=== PATIENT | female | born 1990 | race Caucasian/White ===

== ENCOUNTER 2017-09-26 03:13 | Inpatient (IN) | payer OTHER ==
[2017-09-26] MEDS ORDERED: DEXTROSE 5%-LACTATED RINGERS 1,000 ML IV SCH (04:25)
[2017-09-26 05:25] LABS: BASO % 0.1 % (0-2.0); EOS % 2.8 % (0-4.5); HEMOGLOBIN 11.1 GM/dL (10.7-15.3); MCH 27.8 pg (25.7-33.7); MCHC 33.7 g/dl (32.0-36.0); MEAN CELL VOLUME 82.5 fl (80-96); MEAN PLT VOLUME 8.5 fl (7.5-11.1); NEUT % 73.1 % (42.8-82.8); PLATELET COUNT 318 K/MM3 (134-434); RBC 4.01 M/mm3 (3.60-5.2); RDW 14.9 % (11.6-15.6); WHITE BLOOD COUNT 12.4 K/mm3 (4.0-10.0)
[2017-09-26 05:40] LABS: INR 0.87 (0.82-1.09); PROTHROMBIN TIME (PATIENT) 9.8 SEC (9.98-11.88)
[2017-09-26 05:43] LABS: ACTIVATED PTT 23.8 SECONDS (26.9-34.4)
[2017-09-26 05:53] LABS: ANION GAP 8 (8-16); BLOOD UREA NITROGEN 7 mg/dL (7-18); CALCIUM 8.6 mg/dL (8.5-10.1); CHLORIDE 108 mmol/L (98-107); CO2 22 mmol/L (21-32); CREATININE 0.5 mg/dL (0.55-1.02); GLUCOSE,RANDOM 128 mg/dL (74-106); POTASSIUM 3.8 mmol/L (3.5-5.1); SODIUM 138 mmol/L (136-145)
[2017-09-26 06:14] VITALS: BMI 28.3
[2017-09-26] MEDS ORDERED: FENTANYL/BUPIVACAINE/NS/PF - PCEA - 50 ML DISP.SYRIN EP ONE ×2 (07:13→12:49)
[2017-09-26] MEDS ORDERED: ELECTROLYTE-148 SOLN 1,000 ML IV SCH (07:30)
[2017-09-26] MEDS ORDERED: NALOXONE HCL 0.4 MG/ML VIAL IVPUSH PRN (08:03)
[2017-09-26] MEDS ORDERED: FENTANYL/BUPIVACAINE/NS/PF - PCEA - 50 ML DISP.SYRIN EP SCH (08:15)
[2017-09-26] MEDS ORDERED: OXYTOCIN 30 UNITS in 0.9% NS 30 UNIT/500 ML INFUS.BAG IVPB SCH (08:30)
--- NOTE | 2017-09-26 08:41 | HP ---
Past Medical History - Primary Care Physician PCP:: Arianna Ann - Admission Chief Complaint: 27 yrs , , 40.2 weeks , Iup , onse LP since 11.00PM History of Present Illness: PNC at [facility] in [place] . 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 No: Gastritis Hepatobiliary: No: Hepatitis B Renal/: No: UTI ...: 1 ...Para: 0 ...Term: 0 ...: 0 ...Spon : 0 ...Induced : 0 ...Multiple Gestation: 0 ...LMP: 12/18/16 ... Weeks Gestation by Dates: 40.2 ...EDC by Dates: 09/24/17 Heme/Onc: No: Anemia Infectious Disease: No: AIDS, HIV, STD's Psych: Yes: Other (denies h/o mental health problems) - Past Surgical History Past Surgical History: Yes: None Hx Myomectomy: No Hx Transabdominal Cerclage: No - Smoking History Smoking history: Never smoked Have you smoked in the past 12 months: No - Alcohol/Substance Use Hx Alcohol Use: No History of Substance Use: reports: None - Social History History of Recent Travel: No Home Medications - Allergies Allergies/Adverse Reactions: Allergies Allergy/AdvReac Type Severity Reaction Status Date / Time Penicillins Allergy Verified 09/26/17 05:00 - Home Medications Home Medications: Ambulatory Orders Vit/Iron Fum/Folic AC [ Tablet] 1 each PO DAILY 09/26/17 Physical Exam - Maternity Vital Signs: Vital Signs Temperature 98.0 F 09/26/17 06:00 Pulse Rate 80 09/26/17 06:00 Respiratory Rate 20 09/26/17 06:00 Blood Pressure 136/71 09/26/17 06:00 O2 Sat by Pulse Oximetry (%) Constitutional: Yes: Well Nourished, Other (pt has epidural in situ) Eyes: Yes: WNL HENT: Yes: WNL, Normocephalic Neck: Yes: WNL Cardiovascular: Yes: WNL Lungs: Clear to auscultation Breast(s): Yes: WNL - Abdominal Exam/OB Fundal Height: 40 Number of Fetuses: Single Presentation: Vertex Contractions: Yes Regularity: Irregular Intensity: Moderate (3-5 min) Monitor Mode: External Heart Rate (range): 140 Heart Rate Location: [facility] Category: I Accelerations: Uniform Decelerations: None - Vaginal Exam/OB Vaginal Bleediing: No Speculum Exam: No Dilatation (cm): 5 Effacement (%): 90 Amniotic Membrane Status: Intact Presentation: Vertex/Position (exam at 8.15 AM) Station: -2 (-2/-1) - Physical Exam Musculoskeletal: Yes: WNL Extremities: Yes: Deformity. No: Calf Tenderness Edema: LLE: 1+, RLE: 1+ Integumentary: Yes: Tattoos Deep Tendon Reflex Grade: Normal +2 ...Motor Strength: WNL Psychiatric: Yes: WNL, Alert - Labs Lab Results: CBC, BMP 09/26/17 05:00 09/26/17 05:00 Laboratory Tests 09/26/17 09/26/17 09/26/17 05:00 05:00 05:00 PT with INR 9.80 L INR 0.87 PTT (Actin FS) 23.8 L Blood Type O POSITIVE Antibody Screen Negative Laboratory Tests 09/26/17 09/26/17 09/26/17 08:35 09:19 09:19 Retic Count 1.77 H Uric Acid 3.4 GGT 13 AST 17 ALT 16 Urine Protein Negative Problem List - Problems (1) 40 weeks gestation of Code(s): Z3A.40 - 40 WEEKS GESTATION OF (2) Labor established Code(s): VBT8548 - (3) with care elsewhere Code(s): Z34.90 - ENCNTR FOR SUPRVSN OF NORMAL , UNSP, UNSP TRIMESTER Assessment/Plan 27 yrs , 40 .2 weeks, Gbs neg , admitted in labor , [facility] intrapartum some BP are noted elevated 157/85, 163/88, 152/89, probably due to pain . will do HELLP work up & U/A plan ct epidural labor analgesia started at 7.50 AM anticipate vaginal delivery
[2017-09-26] MEDS ORDERED: TUBERCULIN PPD 5 TU/0.1ML SYRINGE (IN PATIENT USE ONLY) ID ONE (09:00)
[2017-09-26 09:33] LABS: RETICULOCYTES 1.77 % (0.5-1.5)
[2017-09-26 09:42] LABS: URINE APPEARANCE CLEAR; URINE BILIRUBIN NEGATIVE (<2.0 mg/dL); URINE BLOOD 1+ (NEGATIVE); URINE COLOR STRAW; URINE GLUCOSE (UA) NEGATIVE (NEGATIVE); URINE KETONE NEGATIVE (NEGATIVE); URINE LEUK ESTERASE NEGATIVE (NEGATIVE); URINE NITRITE NEGATIVE (NEGATIVE); URINE PROTEIN NEGATIVE (NEGATIVE); URINE UROBILINOGEN NEGATIVE mg/dL (0.2-1.0)
[2017-09-26 09:57] LABS: URIC ACID 3.4 mg/dL (2.6-7.2)
--- NOTE | 2017-09-26 11:43 | PN ---
Progress Note, Labor Vaginal Exam #1 Labor Exam Date: 09/26/17 Labor Exam Time: 11:35 Heart Rate (range): 140 Dilatation: 7 Effacement (%): 100 Amniotic Membrane Status: Ruptured (AROM clear, small amount) Station: 0 Remarks: fhr cat-1 uc q2-4 min Selected Entries 09/26/17 09/26/17 10:00 11:00 Temperature 99.0 F Pulse Rate 77 Blood Pressure 123/63 Vaginal Exam #2 Labor Exam Date: 09/26/17 Labor Exam Time: 12:55 Heart Rate (range): 130 Dilatation: 8 Effacement (%): 100 Amniotic Membrane Status: Ruptured Presentation: Vertex/Position Station: +1 (scalp electrode applied) Remarks: fhr cat-2 decel down to 70 bpm, sp decl uc 2-3 min Vaginal Exam #3 Labor Exam Date: 09/26/17 Labor Exam Time: 14:25 Heart Rate (range): 130 Dilatation: 10 Effacement (%): 100 Amniotic Membrane Status: Ruptured Presentation: Vertex/Position Station: +2 Remarks: fhr cat-1 uc dysfunctional 2-4 min . pt refrained from pushing, awaiting spontaneous descent .
[2017-09-26] MEDS ORDERED: LIDOCAINE HCL 1% PRESERVATIVE FREE - 30ML VIAL ONE (13:24)
[2017-09-26] MEDS ORDERED: OXYTOCIN 20 UNITS in 0.9% NS 20 UNIT/1,000 ML INFUS.BAG IV ONE (13:24)
[2017-09-26] MEDS ORDERED: BISACODYL 10 MG SUPP.RECT RC PRN (16:29)
[2017-09-26] MEDS ORDERED: oxyCODONE HCL 5 MG TABLET PO PRN (16:29)
[2017-09-26] MEDS ORDERED: WITCH HAZEL 50% (TUCKS) 40 PAD/JAR PAD TP PRN (16:29)
[2017-09-26] MEDS ORDERED: IBUPROFEN 600 MG TABLET (FP) PO PRN (16:29)
[2017-09-26] MEDS ORDERED: METHYLERGONOVINE MALEATE 0.2 MG/1 ML AMP IM PRN (16:29)
[2017-09-26] MEDS ORDERED: ACETAMINOPHEN 325 MG TABLET (FP) PO PRN (16:29)
--- NOTE | 2017-09-26 16:42 | PN ---
Delivery - Delivery Vaginal Delivery: No Problems, Spontaneous (baby delivered in Vx presentation, Rosalba position, tight cord around neckx1 was clamped & cut before delivery of shoulder , immediate oral & nasa suction was done) Type of Anesthesia: Local, Epidural Episiotomy/Laceration: Right Mediolateral EBL (cc): 350 Delivery, Single - Stages of Labor Date 1st Stage Initiatied: 09/25/17 Time 1st Stage Initiated: 23:00 Date 2nd Stage Initiated: 09/26/17 Time 2nd Stage Initiated: 14:25 Date of Delivery: 09/26/17 Time of Delivery: 15:56 Time Placenta Delivered: 16:00 Placenta: Yes: Spontaneous, Uterine Exploration - 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 GBS neg. care at [facility] in [place] Plan Pitocin augmentation was given . Intrapartum course uneventful. Large Ext Haemorrhids & prolapse haemorrhoid
[2017-09-26] MEDS ORDERED: OXYTOCIN 20 UNITS in 0.9% NS 20 UNIT/1,000 ML INFUS.BAG IV SCH (16:45)
[2017-09-26] MEDS: BENZOCAINE 20% 57 GM BOTTLE TP PRN ×2 (17:36→21:36)
[2017-09-26] MEDS: FERROUS SO4 325 MG TABLET (FP) PO SCH ×2 (17:36→17:40)
[2017-09-26] MEDS: BENZOCAINE 28 GM HEMORRHOIDAL OINTMENT TP PRN ×2 (17:37→21:37)
[2017-09-26] MEDS: IBUPROFEN 100 MG/5 ML UNIT DOSE CUPS PO PRN (21:33)
[2017-09-26] MEDS: ACETAMINOPHEN 650 MG/20.3 ML ORAL SOLUTION (CUPS) PO PRN (21:34)
--- NOTE | 2017-09-27 07:02 | PN ---
Post Progress Note - Subjective Subjective: c/o perineal soreness & hemorrhoid [place] Post Day: 1 Type of Delivery: Vital Signs: Vital Signs Temperature 97.9 F 09/27/17 06:00 Pulse Rate 89 09/27/17 06:00 Respiratory Rate 18 09/27/17 06:00 Blood Pressure 127/57 09/27/17 06:00 O2 Sat by Pulse Oximetry (%) 100 09/26/17 15:00 Breast Exam: Yes: Soft, Other (BF ). No: Engorged Uterus: Yes: Fundus Firm, Fundus below umbilicus Lochia: Yes: Rubra Lochia, amount: Moderate Extremities: Yes: Calves non-tender Perineum: Yes: Episiotomy (UT hemorrhoids, reducible, prolapse hemorrhid also ) Activity: Ambulating - Labs Labs: CBC WBC 12.4 K/mm3 (4.0-10.0) H 09/26/17 05:00 RBC 4.01 M/mm3 (3.60-5.2) 09/26/17 05:00 Hgb 11.1 GM/dL (10.7-15.3) 09/26/17 05:00 Hct 33.0 % (32.4-45.2) 09/26/17 05:00 MCV 82.5 fl (80-96) 09/26/17 05:00 MCH 27.8 pg (25.7-33.7) 09/26/17 05:00 MCHC 33.7 g/dl (32.0-36.0) 09/26/17 05:00 RDW 14.9 % (11.6-15.6) 09/26/17 05:00 Plt Count 318 K/MM3 (134-434) 09/26/17 09:19 MPV 8.5 fl (7.5-11.1) 09/26/17 05:00 Neutrophils % 73.1 % (42.8-82.8) 09/26/17 05:00 Lymphocytes % 19.0 % (8-40) 09/26/17 05:00 Monocytes % 5.0 % (3.8-10.2) 09/26/17 05:00 Eosinophils % 2.8 % (0-4.5) 09/26/17 05:00 Basophils % 0.1 % (0-2.0) 09/26/17 05:00 Retic Count 1.77 % (0.5-1.5) H 09/26/17 09:19 Problem List - Problems (1) 40 weeks gestation of Code(s): Z3A.40 - 40 WEEKS GESTATION OF (2) Labor established Code(s): [id number] - (3) with care elsewhere Code(s): Z34.90 - ENCNTR FOR SUPRVSN OF NORMAL , UNSP, UNSP TRIMESTER Assessment/Plan ppd #[address] pp care diogo ex sitz bath
[2017-09-27] MEDS: ACETAMINOPHEN 650 MG/20.3 ML ORAL SOLUTION (CUPS) PO PRN ×2 (08:20→20:34)
[2017-09-27] MEDS: FERROUS SO4 300 MG/5 ML ORAL SOLN UNIT DOSE CUPS PO SCH ×2 (08:20→17:34)
[2017-09-27] MEDS: IBUPROFEN 100 MG/5 ML UNIT DOSE CUPS PO PRN ×2 (08:20→20:33)
[2017-09-27 08:57] LABS: BASO % 0.2 % (0-2.0); HEMATOCRIT 29.9 % (32.4-45.2); HEMOGLOBIN 9.7 GM/dL (10.7-15.3); LYMPH % 24.7 % (8-40); MCH 27.1 pg (25.7-33.7); MCHC 32.5 g/dl (32.0-36.0); MEAN CELL VOLUME 83.3 fl (80-96); MEAN PLT VOLUME 8.5 fl (7.5-11.1); MONO % 5.6 % (3.8-10.2); NEUT % 67.5 % (42.8-82.8); PLATELET COUNT 290 K/MM3 (134-434); RBC 3.59 M/mm3 (3.60-5.2); RDW 14.9 % (11.6-15.6); WHITE BLOOD COUNT 16.1 K/mm3 (4.0-10.0)
[2017-09-27] MEDS: PRENATAL VITAMINS W/ FOLIC ACID TABLET (FP) PO SCH (09:07)
[2017-09-27] MEDS ORDERED: SENNOSIDES/DOCUSATE COMBO (SENNA PLUS) TABLET (UD) PO PRN (22:00)
[2017-09-27] MEDS ORDERED: SENNOSIDES 8.8 MG/5 ML BULK BOTTLE PO SCH (22:00)
[2017-09-28] MEDS ORDERED: CEFAZOLIN 1 GM in DEXTROSE 5%-WATER - 50 ML IVPB ONE (07:50)
--- NOTE | 2017-09-28 07:54 | DS ---
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: Vital Signs Temperature 98.4 F 09/27/17 20:41 Pulse Rate 80 09/27/17 20:41 Respiratory Rate 20 09/27/17 20:41 Blood Pressure 128/70 09/27/17 20:41 O2 Sat by Pulse Oximetry (%) 100 09/26/17 15:00 Constitutional: Yes: Well Nourished Eyes: Yes: Conjunctiva Clear Neck: Yes: Supple Cardiovascular: Yes: Regular Rate and Rhythm Respiratory: Yes: Regular Gastrointestinal: Yes: Normal Bowel Sounds Pelvis: Yes: WNL External Genitalia: Yes: Normal Vaginal Exam: Yes: Normal Cervix: Yes: Normal Uterus: Yes: Firm ....Post : Yes: Uterus firm, Moderate lochia serosa Breast(s): Yes: WNL Musculoskeletal: Yes: WNL Extremities: Yes: WNL Neurological: Yes: Alert, Oriented ...Motor Strength: WNL Psychiatric: Yes: Alert, Oriented Labs: CBC, BMP 09/27/17 08:40 09/26/17 05:00 Delivery - Delivery Vaginal Delivery: No Problems, Spontaneous (baby delivered in Vx presentation, Rosalba position, tight cord around neckx1 was clamped & cut before delivery of shoulder , immediate oral & nasa suction was done) Type of Anesthesia: Local, Epidural Episiotomy/Laceration: Right Mediolateral EBL (cc): 350 Delivery, Single - Stages of Labor Date 1st Stage Initiatied: 09/25/17 Time 1st Stage Initiated: 23:00 Date 2nd Stage Initiated: 09/26/17 Time 2nd Stage Initiated: 14:25 Date of Delivery: 09/26/17 Time of Delivery: 15:56 Time Placenta Delivered: 16:00 Placenta: Yes: Spontaneous, Uterine Exploration - Condition of Health Care 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 Present: [place]: Le Villarreal Infant Gender: Female Weight: 7 lb 1 oz Position: Left, OA Total Hours ROM (Hrs/Mins): 4hrs 25min - 1 Minute Total Score: 9 5 Minutes Total Score: 9 - Feeding Plan Initial Plan: Exclusive throughout hospitalization Discharge Summary Reason For Visit: LABOR Current Active Problems 40 weeks gestation of (Acute) Labor established (Acute) Normal spontaneous vaginal delivery (Acute) with care elsewhere (Acute) Procedures: Principal: Normal spontaneous vaginal delivery Hospital Course: Patient is status post vaginal delivery Leukocytosis IV Ancef D / C home after IV antibiotic F/U in clinic in 6 weeks Condition: Stable - Instructions Diet, Activity, Other Instructions: Post Instructions DIET: Continue good diet high in protein, calcium, and iron rich foods. Drink at least eight (8) glasses of water daily in addition to other fluids. ___ Regular diet ___ ___ MEDICATIONS: Continue vitamins and iron as previously directed. Motrin and Tylenol may be taken for minor discomfort. ACTIVITY: Mild to moderate exercise may be started in two (2) weeks. Take frequent rest periods. Resume normal activity after six (6) week check up. WOUND CARE OF OPERATIVE SITE: Continue use of perineal bottle until vaginal discharge stops. Keep area clean. Shower daily. Keep abdominal wound dry. Report any drainage or redness to physician. Tub baths, tampons and douches are not permitted for 6 weeks. Sitz Bath . Avoid constipation . ct Breast feeding & or Bottle feeding BREAST CARE: (For those that are not breast feeding): If engorgement occurs: Wear tight fitting bra. Take Tylenol or Motrin for pain. Apply cold packs (ice in bags to each breast ) FAMILY PLANNING: There are many control alternatives to pursue and they should be discussed at your first office visit. You may resume sexual activity after your six (6) week check up. (Remember, breast feeding is not a contraceptive). see Gastroentrologist for hemorrhids after 6 weeks if persistent . NEXT PHYSICIAN APPOINTMENT: Be certain to call for a six (6) week appointment, unless otherwise directed. Call Clinic or got to Emergency Dept if you have any of the following: Heavy vaginal bleeding Painful urination Leg pain Unusual odor noted to vaginal bleeding High fever Red streaking noted on breast Referrals: Arianna Ann MD [Staff Physician] - Disposition: HOME - Home Medications Comprehensive Discharge Medication List: Ambulatory Orders Vit/Iron Fum/Folic AC [ Tablet] 1 each PO DAILY 09/26/17 Acetaminophen [Tylenol .Regular Strength -] 650 mg PO Q3H PRN tablet 09/27/17 Benzocaine Ointment [Americaine Ointment -] 1 applic TP DAILY PRN tube Benzocaine [Americaine 20% [place] -] 1 spray TP DAILY PRN bottle 09/27/17 Ferrous Sulfate [Feosol] 325 mg PO BIDWM tab 09/27/17 Ibuprofen [Motrin -] 200 mg PO Q4H PRN tablet 09/27/17 Vitamins (Sjr) - 1 tab PO DAILY #30 tablet 09/27/17 Sennosides/Docusate Sodium [Pericolace -] 2 tablet PO HS PRN #60 tablet Witch Milvia 50% (Tucks) [Tucks Pads -] 1 pad TP DAILY PRN pad 09/27/17
[2017-09-28] MEDS: IBUPROFEN 100 MG/5 ML UNIT DOSE CUPS PO PRN (08:16)
[2017-09-28] MEDS: ACETAMINOPHEN 650 MG/20.3 ML ORAL SOLUTION (CUPS) PO PRN (08:19)
[2017-09-28] MEDS: FERROUS SO4 300 MG/5 ML ORAL SOLN UNIT DOSE CUPS PO SCH (08:21)
[2017-09-28 08:46] VITALS: BP 135/76; PULSE 81; TEMP 98.8
[2017-09-28] MEDS ORDERED: CLINDAMYCIN 900 MG PREMIX IVPB 900 MG/50 ML BAG IVPB ONE (10:00)
[2017-09-28] MEDS ORDERED: CLINDAMYCIN PHOSPHATE 600 MG/4 ML VIAL ONE (10:06)
[2017-09-28] MEDS: PRENATAL VITAMINS W/ FOLIC ACID TABLET (FP) PO SCH (10:23)
== END 2017-09-28 11:45 | disposition home or self-care (01) | DRG 560 ==
LOC: JDEL 03:13 → JLDR 04:25 → J3W 17:25
PROVIDERS: ADMIT Obstetrics & Gynecology; ATTEND Obstetrics & Gynecology
PROC: 10E0XZZ Delivery of Products of Conception, External Approach (ICD-10-PCS; principal; 2017-09-26)
PROC: 0W8NXZZ Division of Female Perineum, External Approach (ICD-10-PCS; 2017-09-26)
DX: O69.81X0 Labor and delivery complicated by cord around neck, without compression, not applicable or unspecified (principal); O75.89 Other specified complications of labor and delivery; K64.8 Other hemorrhoids; Z3A.40 40 weeks gestation of pregnancy; Z37.0 Single live birth
CPT/HCPCS: 36415; 59409; 80048; 81003; 81015; 82977; 83010; 84450; 84460; 84550; 85025; 85032; 85044; 85610; 85730; 86593; 86762; 86850; 86900; 86901

== ENCOUNTER 2017-11-02 21:01 | Emergency (ER) | payer OTHER ==
--- NOTE | 2017-11-02 21:34 | PDOC ---
Rapid Medical Evaluation Medical Evaluation: Allergies Allergy/AdvReac Type Severity Reaction Status Date / Time Penicillins Allergy Verified 09/26/17 05:00 11/02/17 21:31 I have performed a brief in-person evaluation of this patient. The patient presents with a chief complaint of: s/p section 1 month ago, now w/ pain and swelling to episiotomy site Pertinent physical exam findings:will defer pelvic exam to main ED team I have ordered the following:ua The patient will proceed to the ED for further evaluation. 11/02/17 21:33 Discharge Disposition - Diagnosis Post-op pain - Referrals - Patient Instructions - Post Discharge Activity
[2017-11-02 21:37] VITALS: BP 126/74; PULSE 68; TEMP 98.3; BMI 25.5
--- NOTE | 2017-11-02 22:35 | PDOC ---
History of Present Illness - General Chief Complaint: Wound Stated Complaint: FEMALES ISSUES Time Seen by Provider: 11/02/17 21:31 History Source: Patient Exam Limitations: No Limitations - History of Present Illness Initial Comments: CHIEF COMPLAINT: 27 y/o afebrile female c/o pain at her episiotomy site today. HISTORY OF PRESENT ILLNESS: The patient had a normal vaginal delivery on . She states she was healing fine until today when she started having pain at her episiotomy site and she thinks one of the stitches has not dissolved. She denies fever, abnormal or foul smelling discharge from site, vaginal bleeding. Vital signs on arrival are within normal limits. REVIEW OF SYSTEMS: GENERAL/CONSTITUTIONAL: No fever/chills. No weakness. No weight change. GENITOURINARY: No dysuria, frequency, or change in urination. SKIN: +pain at episiotomy site NEUROLOGIC: No headache, vertigo, loss of consciousness, or loss of sensation. PHYSICAL EXAM: GENERAL: The patient is awake, alert, and fully oriented, in no acute distress. ABDOMEN: Soft, non-distended, non-tender even to deep palpation, no hepatomegaly or splenomegaly, no masses. VAGINAL: well healing episiotomy scar. Tail of most external stitch seen irritating surrounding skin. Was able to easily remove remaining piece of suture. No bleeding EXTREMITIES: Normal range of motion, no edema. NEUROLOGICAL: Normal speech, normal gait. CN II-XII grossly intact. SKIN: Warm, dry, normal turgor, no rashes or lesions noted. Past History - Past Medical History Allergies/Adverse Reactions: Allergies Allergy/AdvReac Type Severity Reaction Status Date / Time Penicillins Allergy Verified 11/02/17 21:37 Home Medications: Ambulatory Orders Vit/Iron Fum/Folic AC [ Tablet] 1 each PO DAILY 09/26/17 Acetaminophen [Tylenol .Regular Strength -] 650 mg PO Q3H PRN tablet 09/27/17 Benzocaine Ointment [Americaine Ointment -] 1 applic TP DAILY PRN tube Benzocaine [Americaine 20% [place] -] 1 spray TP DAILY PRN bottle 09/27/17 Ferrous Sulfate [Feosol] 325 mg PO BIDWM tab 09/27/17 Ibuprofen [Motrin -] 200 mg PO Q4H PRN tablet 09/27/17 Vitamins (Sjr) - 1 tab PO DAILY #30 tablet 09/27/17 Sennosides/Docusate Sodium [Pericolace -] 2 tablet PO HS PRN #60 tablet Witch Milvia 50% (Tucks) [Tucks Pads -] 1 pad TP DAILY PRN pad 09/27/17 Asthma: Yes Cancer: No Cardiac Disorders: No COPD: No Diabetes: No HTN: No Seizures: No Thyroid Disease: No - Suicide/Smoking/Psychosocial Hx Smoking History: Never smoked Have you smoked in the past 12 months: No Information on smoking cessation initiated: No Hx Alcohol Use: No Drug/Substance Use Hx: No Substance Use Type: None Hx Substance Use Treatment: No *Physical Exam - Vital Signs Last Vital Signs Temp Pulse Resp BP Pulse Ox 98.3 F 68 18 126/74 100 11/02/17 21:31 11/02/17 21:31 11/02/17 21:31 11/02/17 21:31 11/02/17 21:31 Medical Decision Making - Medical Decision Making A/P: 27 y/o female with vaginal irritation from remaining absorbable suture that has not been absorbed. Stitches placed on September 26. Was able to easily remove the piece of suture remaining. Patient states she feels much better. Will discharge to home. Her follow up appointment is with Dr. Ann next week. *DC/Admit/Observation/Transfer Diagnosis at time of Disposition: Post-op pain, Discomfort at episiotomy site - Discharge Dispostion Disposition: HOME Condition at time of disposition: Good - Referrals Referrals: Malik He [Primary Care Provider] - - Patient Instructions Additional Instructions: Discharge Instructions: -Apply warm compresses to your vaginal area to help with pain -Take Tylenol for pain if needed -Keep your follow up appointment with Dr. Ann -Return to the ER with any worsening or concerning symptoms - Post Discharge Activity
[2017-11-03] LABS: URINE APPEARANCE CLEAR; URINE BILIRUBIN NEGATIVE (<2.0 mg/dL); URINE COLOR LTYELLOW; URINE GLUCOSE (UA) NEGATIVE (NEGATIVE); URINE KETONE NEGATIVE (NEGATIVE); URINE LEUK ESTERASE 1+ (NEGATIVE); URINE NITRITE NEGATIVE (NEGATIVE); URINE PROTEIN NEGATIVE (NEGATIVE); URINE UROBILINOGEN NEGATIVE mg/dL (0.2-1.0)
[2017-11-03 00:01] LABS: EPI CELLS RARE /HPF (FEW); URINE MUCUS RARE
== END 2017-11-02 23:00 | disposition home or self-care (01) ==
LOC: JER 21:01
DX: G89.18 Other acute postprocedural pain (principal); O90.1 Disruption of perineal obstetric wound
CPT/HCPCS: 81003; 81015; 99282-25